=== PATIENT | female | born 1990 | race Two or more races ===

== ENCOUNTER 2019-12-08 11:41 | Emergency (ER) | payer SELFPAY ==
[~2019-12-08] VITALS: Ht 165.1 cm; Wt 68.0 kg
[2019-12-08 13:58] VITALS: BP 134/83
[2019-12-08] MEDS ORDERED: KETOROLAC 30MG/ML VIAL IM ONE (14:00)
== END 2019-12-08 15:00 | disposition home or self-care (01) ==
LOC: ER 11:41
DX: M79.602 Pain in left arm (principal); F41.9 Anxiety disorder, unspecified; F32.9 Major depressive disorder, single episode, unspecified; F43.10 Post-traumatic stress disorder, unspecified; Z88.3 Allergy status to other anti-infective agents; Z88.6 Allergy status to analgesic agent
CPT/HCPCS: 81025; 93971; 96372; 99284; J1885